=== PATIENT | female | born 1940 | race Asian ===

== ENCOUNTER 2016-08-16 11:28 | Emergency (ER) | payer OTHER ==
[~2016-08-16] VITALS: Ht 154.9 cm; Wt 50.0 kg
[~2016-08-16 11:28] MED LIST: DOCU-119 PO; FERS325 PO; FOLI1TAB15 PO; GABA-529 PO; PANT40TA25 PO
[2016-08-16] MEDS ORDERED: PredniSONE 20 MG TABLET PO ONE (16:15)
[2016-08-16] MEDS ORDERED: IBUPROFEN 400 MG TABLET PO ONE (16:15)
[2016-08-16] MEDS ORDERED: ACETAMINOPHEN 325 MG TABLET PO ONE (16:15)
[2016-08-16 16:32] LABS: BASOPHILS % (AUTO) 0.4 % (0.0-2.0); HEMATOCRIT 30.7 % (36-46); HEMOGLOBIN 10.4 g/dL (12.0-16.0); LYMPHOCYTES # (AUTO) 2.2 K/uL (1.0-4.8); LYMPHOCYTES % (AUTO) 31.1 % (22.0-44.0); MEAN CORPUSCULAR HEMOGLOBIN 29.3 pg (26.0-34.0); MEAN CORPUSCULAR HGB CONC 33.8 G/dL (31.0-37.0); MEAN CORPUSCULAR VOLUME 87 fL (80-100); MONOCYTES # (AUTO) 0.7 K/uL (0.1-1.0); NEUTROPHILS % (AUTO) 43.3 % (40.0-70.0); PLATELET COUNT (AUTO) 242 K/uL (150-450); RED BLOOD CELL COUNT(AUTO) 3.54 MIL/uL (4.00-5.20); RED CELL DISTRIBUTION WIDTH 13.1 % (11.5-14.5)
[2016-08-16 16:33] LABS: EOSINOPHILS % (AUTO) 15.2 % (1.0-6.0)
[2016-08-16 16:39] LABS: CALCIUM, TOTAL 9.5 mg/dL (8.8-10.5); CREATININE 0.92 mg/dL (0.60-1.30); POTASSIUM 4.2 mmol/L (3.5-5.1)
[2016-08-16 16:45] LABS: ALBUMIN 3.3 g/dL (3.4-5.0); BILIRUBIN,TOTAL 0.2 mg/dL (0.1-1.0)
[2016-08-16 18:23] VITALS: BP 159/74
== END 2016-08-16 19:12 | disposition home or self-care (01) ==
LOC: EMS 11:31
DX: M51.36 Other intervertebral disc degeneration, lumbar region (principal); M54.16 Radiculopathy, lumbar region; I10 Essential (primary) hypertension; Z88.0 Allergy status to penicillin; Z88.1 Allergy status to other antibiotic agents
CPT/HCPCS: 36415; 72131; 80053; 85025; 99285; J7512

== ENCOUNTER 2022-12-28 11:14 | Emergency (ER) | payer MEDICARE, OTHER ==
[~2022-12-28] VITALS: Ht 149.9 cm; Wt 45.5 kg
[~2022-12-28 11:14] MED LIST changes: +FERR325T27 PO; -FERS325 PO; +PANT-31 PO; -PANT40TA25 PO
[2022-12-28 11:35] VITALS: TEMP 98.7
[2022-12-28] MEDS ORDERED: AMLO5TAB66 PO (11:46)
[2022-12-28 12:22] LABS: BASOPHILS % (AUTO) 0.5 % (0.0-2.0); EOSINOPHILS % (AUTO) 6.6 % (1.0-6.0); HEMATOCRIT 33.5 % (36-46); HEMOGLOBIN 11.3 g/dL (12.0-16.0); LYMPHOCYTES # (AUTO) 1.5 K/uL (1.0-4.8); LYMPHOCYTES % (AUTO) 26.4 % (22.0-44.0); MEAN CORPUSCULAR HEMOGLOBIN 31.2 pg (26.0-34.0); MEAN CORPUSCULAR HGB CONC 33.6 G/dL (31.0-37.0); MEAN CORPUSCULAR VOLUME 93 fL (80-100); MONOCYTES # (AUTO) 0.6 K/uL (0.1-1.0); MONOCYTES % (AUTO) 10.3 % (2.0-9.0); NEUTROPHILS # (AUTO) 3.1 K/uL (1.8-7.7); NEUTROPHILS % (AUTO) 56.2 % (40.0-70.0); PLATELET COUNT (AUTO) 193 K/uL (150-450); RED BLOOD CELL COUNT(AUTO) 3.61 MIL/uL (4.00-5.20); RED CELL DISTRIBUTION WIDTH 12.9 % (11.5-14.5)
[2022-12-28 12:25] LABS: CALCIUM, TOTAL 9.2 mg/dL (8.8-10.5); CREATININE 1.2 mg/dL (0.60-1.30); POTASSIUM 4.1 mmol/L (3.5-5.1)
[2022-12-28 12:30] LABS: PROTHROMBIN TIME 10.4 SEC (9.4-11.6)
[2022-12-28 12:31] LABS: ALBUMIN 3.5 g/dL (3.4-5.0); BILIRUBIN,TOTAL 0.4 mg/dL (0.1-1.0); TOTAL PROTEIN, SERUM 7.8 g/dL (6.4-8.2)
[2022-12-28] MEDS ORDERED: MECLIZINE HCL 25 MG TABLET PO ONE (12:45)
[2022-12-28 13:56] LABS: APPEARANCE,URINE CLEAR (CLEAR); BILIRUBIN,URINE NEGATIVE (NEGATIVE); GLUCOSE, URINE (UA) NEGATIVE (NEGATIVE); KETONES,URINE NEGATIVE (NEGATIVE); LEUKOCYTE ESTERASE ,URINE NEGATIVE (NEGATIVE); NITRATE,URINE NEGATIVE (NEGATIVE); OCCULT BLOOD,URINE NEGATIVE (NEGATIVE); PH,URINE 6.5 (5.0-8.0); PROTEIN,URINE NEGATIVE (NEGATIVE); SPECIFIC GRAVITIY, URINE 1.009 (1.003-1.030); UROBILINOGEN,URINE <=1.0 mg/dL (<=1.0)
[2022-12-28 14:00] VITALS: BP 133/52; PULSE 52; RESP 16
[2022-12-28] MEDS ORDERED: MECL-167 PO (14:00)
== END 2022-12-28 14:30 | disposition home or self-care (01) ==
LOC: EMS 11:18
DX: R42 Dizziness and giddiness (principal); I10 Essential (primary) hypertension; Z88.0 Allergy status to penicillin; Z88.8 Allergy status to other drugs, medicaments and biological substances
CPT/HCPCS: 70450; 71045; 80053; 81003; 82550; 83880; 84484; 85025; 85610; 85730; 93005; 99285; 36415-L1; 36415-TC

== ENCOUNTER 2023-02-13 15:37 | Emergency (ER) | payer MEDICARE, OTHER ==
[~2023-02-13] VITALS: Ht 149.9 cm; Wt 45.5 kg
[~2023-02-13 15:37] MED LIST changes: +AMLO5TAB66 PO; +MECL-226 PO
[2023-02-13] MEDS ORDERED: CHOL400T56 PO (15:43)
[2023-02-13 15:44] VITALS: TEMP 98.5
[2023-02-13 16:33] LABS: BASOPHILS % (AUTO) 0.7 % (0.0-2.0); EOSINOPHILS % (AUTO) 6.3 % (1.0-6.0); HEMATOCRIT 35.4 % (36-46); HEMOGLOBIN 11.9 g/dL (12.0-16.0); LYMPHOCYTES # (AUTO) 1.9 K/uL (1.0-4.8); LYMPHOCYTES % (AUTO) 34.8 % (22.0-44.0); MEAN CORPUSCULAR HEMOGLOBIN 31.5 pg (26.0-34.0); MEAN CORPUSCULAR HGB CONC 33.6 G/dL (31.0-37.0); MEAN CORPUSCULAR VOLUME 94 fL (80-100); MONOCYTES # (AUTO) 0.5 K/uL (0.1-1.0); MONOCYTES % (AUTO) 9.5 % (2.0-9.0); NEUTROPHILS # (AUTO) 2.6 K/uL (1.8-7.7); NEUTROPHILS % (AUTO) 48.7 % (40.0-70.0); PLATELET COUNT (AUTO) 194 K/uL (150-450); RED BLOOD CELL COUNT(AUTO) 3.78 MIL/uL (4.00-5.20); RED CELL DISTRIBUTION WIDTH 13.4 % (11.5-14.5); WHITE BLOOD COUNT (AUTO) 5.3 K/uL (4.5-11.0)
[2023-02-13 16:40] LABS: CREATININE 1.2 mg/dL (0.60-1.30); POTASSIUM 3.8 mmol/L (3.5-5.1)
[2023-02-13] MEDS ORDERED: HYDROCORTISONE 1% 30 GM CREAM TP ONE (16:45)
[2023-02-13 16:46] LABS: ALBUMIN 3.4 g/dL (3.4-5.0); BILIRUBIN,TOTAL 0.2 mg/dL (0.1-1.0); TOTAL PROTEIN, SERUM 7.4 g/dL (6.4-8.2)
[2023-02-13 16:48] LABS: TROPONIN I-HIGH SENSITIVITY 11 ng/L (<51)
[2023-02-13 17:00] VITALS: BP 106/48; PULSE 66; RESP 16
== END 2023-02-13 17:30 | disposition home or self-care (01) ==
LOC: EMS 15:43
DX: L25.9 Unspecified contact dermatitis, unspecified cause (principal); I10 Essential (primary) hypertension; Z88.0 Allergy status to penicillin; Z88.8 Allergy status to other drugs, medicaments and biological substances
CPT/HCPCS: 80053; 84484; 85025; 99283

== ENCOUNTER 2024-02-22 11:48 | Emergency (ER) | payer MEDICARE, OTHER ==
[~2024-02-22] VITALS: Ht 152.4 cm; Wt 40.9 kg
[~2024-02-22 11:48] MED LIST changes: +CHOL400T56 PO
[2024-02-22 12:08] VITALS: BP 142/64; PULSE 82; RESP 16; TEMP 98.4; O2SAT 100
[2024-02-22] MEDS ORDERED: LOSA-381 PO (12:10)
[2024-02-22] MEDS: ACETAMINOPHEN 500 MG TABLET PO ONE (14:22)
== END 2024-02-22 16:39 | disposition home or self-care (01) ==
LOC: EMS 11:48
DX: S09.90XA Unspecified injury of head, initial encounter (principal); I10 Essential (primary) hypertension; Z88.0 Allergy status to penicillin; Z79.899 Other long term (current) drug therapy; W19.XXXA Unspecified fall, initial encounter; Y93.89 Activity, other specified; Y92.89 Other specified places as the place of occurrence of the external cause; Y99.8 Other external cause status
CPT/HCPCS: 70450; 72125; 99284